=== PATIENT | female | born 1960 | race Caucasian/White ===

== ENCOUNTER 2017-01-17 12:24 | Emergency (ER) | payer SELFPAY ==
[2017-01-17 12:41] VITALS: BP 157/90
[2017-01-17] MEDS ORDERED: ACETAMINOPHEN 325 MG TABLET PO ONE (14:48)
[2017-01-17] MEDS: ACETAMINOPHEN 325 MG TABLET PO ONE (14:50)
--- NOTE | 2017-01-17 14:59 | RAD ---
Indication right flank pain for 4 days. Hematuria. Axial images through the abdomen and pelvis were obtained. Examination was tailored for the detection of renal and/or ureteral calculi. No IV or gastrointestinal contrast was administered. No prior similar imaging is available. There is some pleural-parenchymal scarring at the right lung base. There are several low-density masses in the liver. The largest measures 4 cm. These are not completely characterized on this examination but they likely reflect incidental cysts. A definite significant finding in the liver is not seen. The spleen appears unremarkable. The gallbladder is distended and has a hydropic appearance. It measures approximately 10.5 cm in length. No pancreatic abnormality is seen. There are no adrenal masses. There are 2 left renal calculi the largest measuring approximately 2 mm. There is additionally a 1.4 cm low-density mass associated with the left kidney not completely characterized but likely reflecting a cyst. No right renal calculi are seen. There is no hydronephrosis hydroureter or definite calcification seen along the course of either ureter. There is a calcification in the right pelvis, image 78 series 2. The etiology is unclear. It is probably vascular in nature. A mid ureteral calculus cannot be entirely excluded but is felt less likely as there is no significant hydroureter proximal to this calcification. Occasional phleboliths are noted in the pelvis. A definite acute finding in the abdomen is not seen. Occasional diverticula are seen associated with the large bowel. Active inflammation is not seen. The appendix is seen in the right lower quadrant and appears unremarkable. There is probable demineralization of the visualized spine. Scoliosis and degenerative changes are noted. There is moderate compression associated with L2, probably old IMPRESSION: Low-density masses in the liver likely reflecting cysts. 2 minute left renal calculi. Left renal cyst. No hydronephrosis or significant hydroureter is seen. There is a calcification in the right pelvis which is probably vascular. A minimally or nonobstructing ureteral calculus cannot be entirely excluded. Hydropic gallbladder. PQRS Compliance Statement: One or more of the following individualized dose reduction techniques were utilized for this examination: 1. Automated exposure control 2. Adjustment of the mA and/or kV according to patient size 3. Use of iterative reconstruction technique
[2017-01-17 15:15] LABS: HEMOGLOBIN ISTAT 13.6 gm/dL; POTASSIUM ISTAT 4.2 mmol/L (3.5-5.0)
[2017-01-17 15:28] LABS: BILIRUBIN,URINE NEG (NEG); CLARITY,URINE CLEAR; COLOR,URINE YELLOW; NITRITE,URINE NEG (NEG); UROBILINOGEN,URINE 0.2 mg/dL (0.2 mg/dL)
[2017-01-17 15:29] LABS: GLUCOSE,URINE NEG (NEG)
--- NOTE | 2017-01-17 15:34 | ED.ADGEN ---
Past History Past Medical History: No Pertinent History Past Surgical History: No Surgical History Additional Smoking Information: 1 PACK A DAY Alcohol Use: Occasionally Drug Use: None Adult General Chief Complaint Chief Complaint Flank pain HPI HPI Patient is a 56-year-old female presents with left flank pain him a acute onset earlier today. Patient reports dysuria, urgency and frequency. Denies nausea, vomiting, fever chills and sweats. No history of kidney infections or kidney stones. Denies constipation, diarrhea. No other symptoms or complaints. Review of Systems Review of Systems Review symptoms as per history of present illness. All other review symptoms are negative. Current Medications Current Medications Current Medications Medications (Trade) Dose Ordered Sig/Jennifer Start Time Stop Time Status Last Admin Dose Admin Acetaminophen (Tylenol) 650 mg 1X ONCE 01/17/17 14:30 01/17/17 14:31 UNV 01/17/17 14:50 650 MG Physical Exam Physical Exam Constitutional: Moderate discomfort secondary pain, well nourished, no acute distress, non-toxic appearance. HENT: Normocephalic, atraumatic, bilateral external ears normal, oropharynx moist, no oral exudates, nose normal. Eyes: PERRLA, EOMI, conjunctiva normal. Neck: Normal range of motion. Cardiovascular:Heart rate regular rhythm, no murmur. Lungs & Thorax: Bilateral breath sounds clear. Abdomen: Bowel sounds normal, soft, no tenderness. Skin: Warm, dry, no erythema. Back: Left CVA tenderness. Extremities: No tenderness. Neurologic: Alert and oriented X 3, normal motor function, normal sensory function, no focal deficits noted. Psychologic: Affect normal, judgement normal, mood normal. Current Patient Data Vital Signs Vital Signs Date Time Temp Pulse Resp B/P Pulse Ox O2 Delivery O2 Flow Rate FiO2 01/17/17 12:41 98.2 100 22 95 Room Air Lab Results Laboratory Tests Test 01/17/17 15:10 POC Hemoglobin 13.6gm/dL POC Hematocrit 40% POC Sodium 136mmol/L (135-145) POC Potassium 4.2mmol/L (3.5-5.0) POC Chloride 103mmol/L (98-110) POC Total CO2 23mmol/L (23-32) Anion Gap 16mmol/L (6-14) H POC Blood Urea Nitrogen 7mg/dL (8-26) L POC Creatinine 0.8mg/dL (0.5-1.4) Glucose Level 92mg/dL (60-99) POC Ionized Calcium (Sage) 1.22mmol/L (1.13-1.32) EKG EKG [] Radiology/Procedures Radiology/Procedures [CT abdomen and pelvis: No obstructive uropathy] Impressions: Left flank pain with pyelonephritis Course & Med Decision Making Course & Med Decision Making Pertinent Labs and Imaging studies reviewed. (See chart for details) [No fever or elevation of white blood cell count. Pain address, treatment. We' ll treat empirically with PCP follow-up. Courtesy work note provided. Return precautions reviewed. Final Impression Final Impression [#1 left flank pain #2 pyelonephritis] Problems: Dragon Disclaimer Dragon Disclaimer This electronic medical record was generated, in whole or in part, using a voice recognition dictation system. ELIZABETH ZAMARRIPA DO Jan 17, 2017 15:34
== END 2017-01-17 15:32 | disposition home or self-care (01) ==
LOC: ER 13:17
DX: N12 Tubulo-interstitial nephritis, not specified as acute or chronic (principal); R10.9 Unspecified abdominal pain; F17.210 Nicotine dependence, cigarettes, uncomplicated
CPT/HCPCS: 74176; 80047; 81003; 99284